=== PATIENT | female | born 1955 | race Caucasian/White ===

== ENCOUNTER → 2022-01-19 | Outpatient (CLI) | payer OTHER ==
--- NOTE | 2022-01-19 13:04 | KCIC ---
RS Compliance Statement: One or more of the following individualized dose reduction techniques were utilized for this examinat ion: 1. Automated exposure control 2. Adjustment of the mA and/or kV according to patient size 3. Use of iterative reconstruction technique Coronary calcium score CT chest without contrast History: Screening for heart disease. History of elevated lipids. Technique: With retrospective electrocardiogram gating axial reconstructed noncontrast images of the chest at the level of the coronary arteries was performed. Images were post processed on workstation and calcium score calculated using the modified Agatston Janowitz protocol. Findings: Total coronary calcium score is 0. This is a no identifiable plaque burden and low cardiova scular disease risk. This is based on the calcium score of 0 of the left main coronary artery, score of 0 of the left anterior descending artery, score of 0 of the left circumflex artery and score of 0 of the right coronary artery. Noncoronary findings demonstrate borderline ectasia of the ascending thoracic aorta. Cardiac size is normal, no pericardial effusion. The visualized upper abdomen is unremarkable. No pleural abnormality is seen. There is minimal atelectasis or scarring in the medial bilateral lower lobes. Visualized daniel ngs otherwise clear. IMPRESSION: Patient's total calcium score is 0. Electronically signed by: Corby Robb MD (01/19/2022 1:02 PM) [id number]
== END ==
LOC: KCIC CT 12:20
PROVIDERS: ATTEND Family Medicine
DX: Z13.6 Encounter for screening for cardiovascular disorders (principal); Z82.49 Family history of ischemic heart disease and other diseases of the circulatory system
CPT/HCPCS: 75571